=== PATIENT | female | born 1950 | race Caucasian/White ===

== ENCOUNTER 2024-09-27 12:10 | Inpatient (IN) | payer MEDICARE, OTHER ==
[~2024-09-27] VITALS: Ht 152.4 cm; Wt 36.3 kg
[2024-09-27] MEDS ORDERED: oxyCODONE IR immediate release 5 MG TABLET ONE (13:58)
[2024-09-27] MEDS: oxyCODONE IR immediate release 5 MG TABLET PO PRN (14:00)
[2024-09-27 14:25] LABS: CALCIUM, SERUM 9.7 mg/dL (8.5-10.1); CREATININE 0.9 mg/dL (0.6-1.3); POTASSIUM 3.5 mmol/L (3.5-5.1)
[2024-09-27 14:34] LABS: INR 1.03 (0.91-1.10); PARTIAL THROMBOPLASTIN TIME 29.6 SEC (24.3-34.3); PROTHROMBIN TIME 10.9 SECS (9.2-11.1)
[2024-09-27 14:55] LABS: BASOPHILS # (AUTO) 0.1 K/uL (0.0-0.2); BASOPHILS % (AUTO) 0.9 % (0.0-2.0); EOSINOPHILS # (AUTO) 0.1 K/uL (0.0-0.7); EOSINOPHILS % (AUTO) 0.7 % (0.0-6.0); HEMATOCRIT 40 % (33-45); HEMOGLOBIN 13.8 g/dL (11.5-14.8); LYMPHOCYTES % (AUTO) 11.9 % (20.0-44.0); MEAN CORPUSCULAR HEMOGLOBIN 33 PG (26.0-33.0); MEAN CORPUSCULAR HGB CONC 35 g/dl (31.0-36.0); MEAN CORPUSCULAR VOLUME 94 fL (82-100); MONOCYTES # (AUTO) 0.8 K/uL (0.1-1.30); MONOCYTES % (AUTO) 9.4 % (2.0-12.0); NEUTROPHILS # (AUTO) 6.7 K/uL (1.8-8.9); NEUTROPHILS % (AUTO) 77.1 % (43.0-81.0); PLATELET COUNT (AUTO) 254 K/uL (150-450); RED BLOOD CELL COUNT(AUTO) 4.25 MIL/uL (4.0-5.2); RED CELL DISTRIBUTION WIDTH 13.7 % (11.5-15.0); WHITE BLOOD COUNT (AUTO) 8.7 K/uL (4.3-11.0)
[2024-09-27] MEDS ORDERED: MORPHINE SULFATE INJ 4 MG/ML DISP.SYRIN ONE (15:35)
[2024-09-27] MEDS: MORPHINE SULFATE INJ 2 MG/ML DISP.SYRIN IV ONE (15:56)
[2024-09-27] MEDS ORDERED: FLUT1BLS6 IH (16:35)
[2024-09-27] MEDS ORDERED: AMLO5TAB4 PO (16:35)
[2024-09-27] MEDS ORDERED: SIME180C47 PO (16:35)
[2024-09-27] MEDS ORDERED: ALBU8.5H8 IH (16:35)
[2024-09-27] MEDS ORDERED: HYDR-4209 PO (16:35)
[2024-09-27] MEDS ORDERED: DIAZ5TAB4 PO (16:35)
[2024-09-27] MEDS ORDERED: SUMA100T PO (16:35)
[2024-09-27] MEDS ORDERED: CHOL200026 PO (16:35)
[2024-09-27] MEDS ORDERED: LOPE-195 PO (16:35)
[2024-09-27] MEDS ORDERED: PROC10TA13 PO (16:35)
[2024-09-27] MEDS ORDERED: ASPI-1169 PO (16:35)
[2024-09-27] MEDS ORDERED: PRED5TAB PO (16:35)
[2024-09-27] MEDS ORDERED: FENT1PAT10 TD (16:35)
[2024-09-27] MEDS ORDERED: LEVO50TA PO (16:35)
[2024-09-27] MEDS ORDERED: BISA5TAB10 PO (16:35)
[2024-09-27] MEDS ORDERED: DOCU100T2 PO (16:35)
[2024-09-27] MEDS ORDERED: ESOM40CA PO (16:35)
[2024-09-27] MEDS ORDERED: METO25TA6 PO (16:35)
[2024-09-27] MEDS ORDERED: RIBO100T6 PO (16:35)
[2024-09-27] MEDS ORDERED: ESTR-3 PO (16:35)
[2024-09-27] MEDS ORDERED: B-CO1TAB PO (16:35)
[2024-09-27] MEDS ORDERED: MAG HYDROX/AL HYDROX/SIMETH 30 ML UDC PO PRN (18:00)
[2024-09-27] MEDS ORDERED: ONDANSETRON HCL/PF 4 MG/2 ML VIAL IVP PRN (18:00)
[2024-09-27] MEDS ORDERED: BISACODYL (5 MG) 5 MG TABLET.DR PO PRN (18:00)
[2024-09-27] MEDS ORDERED: ZOLPIDEM TARTRATE 5 MG TABLET PO PRN (18:00)
[2024-09-27] MEDS ORDERED: LOPERAMIDE HCL (2 MG CAP) 2 MG CAPSULE PO PRN (18:00)
[2024-09-27] MEDS ORDERED: DIAZEPAM 5 MG TABLET PO PRN (18:00)
[2024-09-27] MEDS ORDERED: DOCUSATE SODIUM 100 MG CAPSULE PO PRN (18:30)
[2024-09-27] MEDS ORDERED: ALBUTEROL FS 2.5 MG/3 ML VIAL.NEB NEB PRN (18:30)
[2024-09-27] MEDS: FENTANYL PATCH (100 MCG/HR) 100 MCG/HR PATCH.TD72 TD SCH (19:48)
[2024-09-27] MEDS: ENOXAPARIN SODIUM 40 MG/0.4 ML DISP.SYRIN SQ SCH (19:49)
[2024-09-27 20:00] VITALS: BP_SYST 122; BP_SYST 160; BP_DIAS 62; BP_DIAS 65; TEMP 98.2; O2SAT 100
[2024-09-27] MEDS: IV D5/0.45 NACL 1,000 ML IV PRN (20:26)
[2024-09-28] VITALS: BP 122/65
[2024-09-28 07:13] LABS: BASOPHILS # (AUTO) 0.1 K/uL (0.0-0.2); BASOPHILS % (AUTO) 1.3 % (0.0-2.0); EOSINOPHILS # (AUTO) 0.5 K/uL (0.0-0.7); EOSINOPHILS % (AUTO) 7.6 % (0.0-6.0); HEMATOCRIT 37 % (33-45); HEMOGLOBIN 12.3 g/dL (11.5-14.8); LYMPHOCYTES # (AUTO) 1.2 K/uL (0.8-4.8); LYMPHOCYTES % (AUTO) 17.6 % (20.0-44.0); MEAN CORPUSCULAR HEMOGLOBIN 31 PG (26.0-33.0); MEAN CORPUSCULAR HGB CONC 34 g/dl (31.0-36.0); MEAN CORPUSCULAR VOLUME 93 fL (82-100); MONOCYTES # (AUTO) 0.8 K/uL (0.1-1.30); MONOCYTES % (AUTO) 11.6 % (2.0-12.0); NEUTROPHILS # (AUTO) 4.3 K/uL (1.8-8.9); NEUTROPHILS % (AUTO) 61.9 % (43.0-81.0); PLATELET COUNT (AUTO) 237 K/uL (150-450); RED BLOOD CELL COUNT(AUTO) 3.92 MIL/uL (4.0-5.2); RED CELL DISTRIBUTION WIDTH 13.6 % (11.5-15.0)
[2024-09-28 07:30] VITALS: BP 140/80; TEMP 98.2; O2SAT 100
[2024-09-28] MEDS: PANTOPRAZOLE 40 MG TABLET.DR PO SCH (07:38)
[2024-09-28 07:40] LABS: CREATININE 0.8 mg/dL (0.6-1.3); MAGNESIUM 1.8 mg/dL (1.8-2.4); PHOSPHORUS 3.6 mg/dL (2.5-4.9); POTASSIUM 3.6 mmol/L (3.5-5.1)
[2024-09-28 08:02] LABS: THYROID STIMULATING HORMONE 32.61 uIU/mL (0.358-3.74)
[2024-09-28] MEDS ORDERED: ANESTHESIA TRAY IN PYXIS 1 EA TRAY MC ONE ×2 (08:20→13:04)
[2024-09-28] MEDS ORDERED: BUPIVACAINE 0.5 % PF 150 MG/30 ML VIAL ONE (08:20)
[2024-09-28] MEDS: PROCHLORPERAZINE MALEATE 10 MG TABLET PO SCH (09:00)
[2024-09-28] MEDS: METOPROLOL TARTRATE 25 MG TABLET PO SCH (09:00)
[2024-09-28] MEDS ORDERED: [UNRECOGNIZED DRUG - OTHER] PO SCH (09:00)
[2024-09-28] MEDS: SIMETHICONE 80 MG TAB.CHEW PO SCH (09:00)
[2024-09-28] MEDS ORDERED: SUMATRIPTAN SUCCINATE 100 MG TABLET PO PRN (09:00)
[2024-09-28] MEDS: ASPIRIN 81 MG TAB.CHEW PO SCH (09:00)
[2024-09-28] MEDS ORDERED: PANTOPRAZOLE 40 MG TABLET.DR PO SCH (09:00)
[2024-09-28] MEDS: AMLODIPINE BESYLATE 5 MG TABLET PO SCH (09:00)
[2024-09-28] MEDS ORDERED: ROPIVACAINE HCL 0.5% 5 MG/ML 30ML VIAL ONE (09:01)
[2024-09-28] MEDS ORDERED: FENTANYL PF 100MCG/2ML AMPUL ONE (09:01)
[2024-09-28] MEDS ORDERED: TRANEXAMIC ACID 1,000 MG/10 ML VIAL ONE (09:02)
[2024-09-28] MEDS ORDERED: ROCURONIUM BROMIDE 50 MG/5 ML ONE (09:02)
[2024-09-28] MEDS ORDERED: MEPERIDINE HCL/PF 50 MG/ML DISP.SYRIN IV PRN (12:00)
[2024-09-28] MEDS ORDERED: MORPHINE SULFATE INJ 10 MG/ML DISP.SYRIN IV PRN (12:00)
[2024-09-28 14:56] LABS: HEMOGLOBIN 11.6 g/dL (11.5-14.8)
[2024-09-28 16:00] VITALS: BP 135/74; TEMP 98.2; O2SAT 99
[2024-09-28] MEDS: predniSONE 5 MG TABLET PO SCH (18:08)
[2024-09-28] MEDS: CHOLECALCIFEROL 1,000 UNIT TABLET (VIT D3) PO SCH (18:09)
[2024-09-28] MEDS: LEVOTHYROXINE SODIUM 50 MCG TABLET PO SCH (18:09)
[2024-09-28] MEDS: RIBOFLAVIN 400 MG PO SCH (18:10)
[2024-09-28] MEDS: Z GUARD REMEDY 4 OZ OINT TP PRN (18:12)
[2024-09-28] MEDS: Fluticasone/Umeclidin/Vilanter (Trelegy Ellipta 100-62.5 INH SCH (18:52)
[2024-09-28] MEDS: CONJUGATED ESTROGENS PO SCH (18:52)
[2024-09-28] MEDS: MEDROXYPROGESTERONE PO SCH (18:52)
[2024-09-28] MEDS: ANCEF 1 GM/50 ML D5W IV SCH (18:53)
[2024-09-28 20:58] VITALS: BP 108/61; TEMP 98.1; O2SAT 99
[2024-09-29 01:22] VITALS: BP 108/61; TEMP 98.1; O2SAT 100
[2024-09-29 08:03] LABS: BASOPHILS % (AUTO) 0.1 % (0.0-2.0); HEMATOCRIT 32 % (33-45); HEMOGLOBIN 10.9 g/dL (11.5-14.8); LYMPHOCYTES # (AUTO) 1.3 K/uL (0.8-4.8); LYMPHOCYTES % (AUTO) 11.3 % (20.0-44.0); MEAN CORPUSCULAR HEMOGLOBIN 32 PG (26.0-33.0); MEAN CORPUSCULAR HGB CONC 34 g/dl (31.0-36.0); MEAN CORPUSCULAR VOLUME 94 fL (82-100); MONOCYTES # (AUTO) 1.3 K/uL (0.1-1.30); MONOCYTES % (AUTO) 10.8 % (2.0-12.0); NEUTROPHILS # (AUTO) 9.2 K/uL (1.8-8.9); NEUTROPHILS % (AUTO) 77.8 % (43.0-81.0); PLATELET COUNT (AUTO) 240 K/uL (150-450); RED BLOOD CELL COUNT(AUTO) 3.47 MIL/uL (4.0-5.2); RED CELL DISTRIBUTION WIDTH 13.7 % (11.5-15.0); WHITE BLOOD COUNT (AUTO) 11.8 K/uL (4.3-11.0)
[2024-09-29 08:10] LABS: CALCIUM, SERUM 8.8 mg/dL (8.5-10.1); CREATININE 0.9 mg/dL (0.6-1.3); PHOSPHORUS 3.1 mg/dL (2.5-4.9); POTASSIUM 3.8 mmol/L (3.5-5.1)
[2024-09-29 08:51] VITALS: BP 144/65; TEMP 98.1; O2SAT 93
[2024-09-29] MEDS: HYDROCODONE/APAP 5/325MG TABLET PO PRN (10:27)
[2024-09-29] MEDS: THERAHONEY GEL 1.5 OZ TUBE TP SCH (12:50)
[2024-09-29] MEDS: ENOXAPARIN SODIUM 40 MG/0.4 ML DISP.SYRIN SQ SCH (13:56)
[2024-09-29 16:18] VITALS: BP 117/64; TEMP 97.7; O2SAT 100
[2024-09-29 20:00] VITALS: BP 111/56; TEMP 98.2; O2SAT 99
[2024-09-30 08:00] VITALS: BP 162/81; TEMP 97.9; O2SAT 98
[2024-09-30] MEDS: LEVOTHYROXINE SODIUM 50 MCG TABLET PO SCH (08:49)
[2024-09-30 10:47] LABS: BASOPHILS % (AUTO) 0.2 % (0.0-2.0); EOSINOPHILS # (AUTO) 0.2 K/uL (0.0-0.7); EOSINOPHILS % (AUTO) 2.1 % (0.0-6.0); HEMATOCRIT 31 % (33-45); HEMOGLOBIN 10.4 g/dL (11.5-14.8); LYMPHOCYTES # (AUTO) 0.9 K/uL (0.8-4.8); LYMPHOCYTES % (AUTO) 11.7 % (20.0-44.0); MEAN CORPUSCULAR HEMOGLOBIN 32 PG (26.0-33.0); MEAN CORPUSCULAR HGB CONC 34 g/dl (31.0-36.0); MEAN CORPUSCULAR VOLUME 94 fL (82-100); MONOCYTES # (AUTO) 0.8 K/uL (0.1-1.30); MONOCYTES % (AUTO) 10.1 % (2.0-12.0); NEUTROPHILS # (AUTO) 6.1 K/uL (1.8-8.9); NEUTROPHILS % (AUTO) 75.9 % (43.0-81.0); PLATELET COUNT (AUTO) 232 K/uL (150-450); RED BLOOD CELL COUNT(AUTO) 3.25 MIL/uL (4.0-5.2); RED CELL DISTRIBUTION WIDTH 13.5 % (11.5-15.0)
[2024-09-30 11:13] LABS: CALCIUM, SERUM 8.8 mg/dL (8.5-10.1); CREATININE 0.8 mg/dL (0.6-1.3); MAGNESIUM 1.6 mg/dL (1.8-2.4); PHOSPHORUS 1.5 mg/dL (2.5-4.9); POTASSIUM 3.1 mmol/L (3.5-5.1)
[2024-09-30] MEDS: MAGNESIUM OXIDE 400 MG TABLET PO ONE (13:05)
[2024-09-30] MEDS: POTASSIUM CHLORIDE 20 MEQ TAB.PRT.SR PO SCH (13:05)
[2024-09-30] MEDS: ACETAMINOPHEN 325 MG TABLET PO PRN (14:27)
[2024-09-30 16:00] VITALS: BP 125/48; TEMP 98.6; O2SAT 100
[2024-09-30] MEDS: K PHOS NEUTRAL 250 MG TABLET PO ONE (16:00)
[2024-09-30] MEDS: oxyCODONE/APAP (5/325 MG) 1 UDTAB TABLET PO PRN (16:56)
[2024-09-30 20:00] VITALS: BP 136/56; TEMP 98.2; O2SAT 100
[2024-10-01 07:44] LABS: CALCIUM, SERUM 9.3 mg/dL (8.5-10.1); CREATININE 0.6 mg/dL (0.6-1.3); MAGNESIUM 1.9 mg/dL (1.8-2.4); PHOSPHORUS 1.7 mg/dL (2.5-4.9); POTASSIUM 3.6 mmol/L (3.5-5.1)
[2024-10-01 08:00] VITALS: BP 167/79; TEMP 98.2; O2SAT 99
[2024-10-01 08:48] VITALS: BP 167/79
[2024-10-01] MEDS: MAGNESIUM HYDROXIDE 30 ML UDC PO PRN (12:55)
== END 2024-10-01 13:00 | DRG 521 ==
LOC: ER 12:18 → MED 18:00
PROVIDERS: ADMIT Student in an Organized Health Care Education/Training Program; ATTEND Nurse Practitioner Acute Care
PROC: 0SRS0J9 Replacement of Left Hip Joint, Femoral Surface with Synthetic Substitute, Cemented, Open Approach (ICD-10-PCS; principal; 2024-09-28 09:00)
PROC: 0KBP0ZZ Excision of Left Hip Muscle, Open Approach (ICD-10-PCS; 2024-09-30)
PROC: 0KBN0ZZ Excision of Right Hip Muscle, Open Approach (ICD-10-PCS; 2024-09-30)
DX: M80.052A Age-related osteoporosis with current pathological fracture, left femur, initial encounter for fracture (principal); E43 Unspecified severe protein-calorie malnutrition; L89.153 Pressure ulcer of sacral region, stage 3; E87.1 Hypo-osmolality and hyponatremia; R64 Cachexia; Z68.1 Body mass index [BMI] 19.9 or less, adult; G91.2 (Idiopathic) normal pressure hydrocephalus; W18.30XA Fall on same level, unspecified, initial encounter; M06.9 Rheumatoid arthritis, unspecified; E03.9 Hypothyroidism, unspecified; F17.210 Nicotine dependence, cigarettes, uncomplicated; D64.9 Anemia, unspecified; D72.829 Elevated white blood cell count, unspecified; I10 Essential (primary) hypertension; Z88.0 Allergy status to penicillin; Y93.9 Activity, unspecified; Y92.009 Unspecified place in unspecified non-institutional (private) residence as the place of occurrence of the external cause
CPT/HCPCS: 36415; 70450-TC; 71045-TC; 72125-TC; 72170-TC; 73502; 73552; 73700-TC; 80048-TC; 83735-TC; 84100-TC; 84439-TC; 84443-TC; 85025-TC; 85027-TC; 85730-TC; 86850-TC; 93307-TC; 97110-TC; 97116-TC; 97530-TC; A4223; G0378; J0330; J0690; J1650; J1885; J2270; J2405; J2704; J2795; J3010; J3490; J7030; J7040; J7060; J7512; Q0164

== ENCOUNTER 2024-10-20 06:29 | Inpatient (IN) | payer MEDICARE, OTHER ==
[~2024-10-20] VITALS: Ht 162.6 cm; Wt 42.2 kg
[~2024-10-20 06:29] MED LIST: ALBU8.5H8 IH; AMLO5TAB4 PO; ASPI-1169 PO; B-CO1TAB PO; BISA5TAB10 PO; CHOL200026 PO; DIAZ5TAB4 PO; DOCU100T2 PO; ESOM40CA PO; ESTR-3 PO; FENT1PAT10 TD; FLUT1BLS6 IH; HYDR-4209 PO; LEVO50TA PO; LOPE-195 PO; METO25TA6 PO; PRED5TAB PO; PROC10TA13 PO; RIBO100T6 PO; SIME180C47 PO; SUMA100T PO
[2024-10-20] MEDS ORDERED: ONDANSETRON HCL/PF 4 MG/2 ML VIAL ONE (06:57)
[2024-10-20] MEDS: MORPHINE SULFATE INJ 2 MG/ML DISP.SYRIN IV ONE (06:57)
[2024-10-20] MEDS ORDERED: MORPHINE SULFATE INJ 2 MG/ML DISP.SYRIN ONE (06:57)
[2024-10-20] MEDS: ONDANSETRON HCL/PF 4 MG/2 ML VIAL IVP ONE (06:58)
[2024-10-20 07:13] LABS: BASOPHILS % (AUTO) 0.5 % (0.0-2.0); EOSINOPHILS # (AUTO) 0.1 K/uL (0.0-0.7); EOSINOPHILS % (AUTO) 1.3 % (0.0-6.0); HEMATOCRIT 31 % (33-45); HEMOGLOBIN 10.3 g/dL (11.5-14.8); LYMPHOCYTES # (AUTO) 1.9 K/uL (0.8-4.8); LYMPHOCYTES % (AUTO) 18.9 % (20.0-44.0); MEAN CORPUSCULAR HEMOGLOBIN 32 PG (26.0-33.0); MEAN CORPUSCULAR HGB CONC 33 g/dl (31.0-36.0); MEAN CORPUSCULAR VOLUME 95 fL (82-100); MONOCYTES # (AUTO) 0.7 K/uL (0.1-1.30); MONOCYTES % (AUTO) 7.3 % (2.0-12.0); NEUTROPHILS # (AUTO) 7.3 K/uL (1.8-8.9); PLATELET COUNT (AUTO) 415 K/uL (150-450); RED BLOOD CELL COUNT(AUTO) 3.26 MIL/uL (4.0-5.2); RED CELL DISTRIBUTION WIDTH 14.2 % (11.5-15.0); WHITE BLOOD COUNT (AUTO) 10.1 K/uL (4.3-11.0)
[2024-10-20 07:19] LABS: CALCIUM, SERUM 9.2 mg/dL (8.5-10.1); CREATININE 0.9 mg/dL (0.6-1.3); POTASSIUM 3.6 mmol/L (3.5-5.1)
[2024-10-20 07:27] LABS: INR 1.01 (0.91-1.10); PARTIAL THROMBOPLASTIN TIME 23.7 SEC (24.3-34.3); PROTHROMBIN TIME 10.7 SECS (9.2-11.1)
[2024-10-20] MEDS ORDERED: DIAZEPAM 5 MG TABLET PO PRN (08:00)
[2024-10-20] MEDS ORDERED: SUMATRIPTAN SUCCINATE 100 MG TABLET PO PRN (08:00)
[2024-10-20] MEDS ORDERED: Z GUARD REMEDY 4 OZ OINT TP PRN (08:00)
[2024-10-20] MEDS ORDERED: MAGNESIUM HYDROXIDE 30 ML UDC PO PRN (08:00)
[2024-10-20] MEDS ORDERED: LOPERAMIDE HCL (2 MG CAP) 2 MG CAPSULE PO PRN (08:00)
[2024-10-20] MEDS ORDERED: BISACODYL (5 MG) 5 MG TABLET.DR PO PRN (08:00)
[2024-10-20] MEDS ORDERED: ACETAMINOPHEN 325 MG TABLET PO PRN (08:00)
[2024-10-20] MEDS ORDERED: ONDANSETRON HCL/PF 4 MG/2 ML VIAL IVP PRN (08:00)
[2024-10-20] MEDS ORDERED: MAG HYDROX/AL HYDROX/SIMETH 30 ML UDC PO PRN (08:00)
[2024-10-20] MEDS ORDERED: ONDA4TAB11 PO (08:15)
[2024-10-20] MEDS ORDERED: GABA-532 PO (08:15)
[2024-10-20] MEDS ORDERED: TRAM50TA2 PO (08:15)
[2024-10-20] MEDS: AMLODIPINE BESYLATE 5 MG TABLET PO SCH (09:00)
[2024-10-20 10:30] VITALS: BP 157/71; TEMP 98.1; O2SAT 97
[2024-10-20] MEDS ORDERED: DOCUSATE SODIUM 100 MG CAPSULE PO PRN (11:00)
[2024-10-20] MEDS: METOPROLOL TARTRATE 25 MG TABLET PO SCH (11:37)
[2024-10-20] MEDS: LEVOTHYROXINE SODIUM 50 MCG TABLET PO SCH (11:37)
[2024-10-20] MEDS: predniSONE 5 MG TABLET PO SCH (11:37)
[2024-10-20] MEDS: PROCHLORPERAZINE MALEATE 10 MG TABLET PO SCH (13:18)
[2024-10-20] MEDS ORDERED: ALBUTEROL FS 2.5 MG/3 ML VIAL.NEB IH PRN (13:30)
[2024-10-20] MEDS: MORPHINE SULFATE INJ 2 MG/ML DISP.SYRIN IV PRN (14:23)
[2024-10-20] MEDS: IV NS 0.9% 1,000 ML IV PRN (15:44)
[2024-10-20 16:00] VITALS: BP 151/73; TEMP 99.3; O2SAT 97
[2024-10-20 16:03] VITALS: BP 151/73; TEMP 99.3; O2SAT 97
[2024-10-20 20:00] VITALS: BP 148/76; TEMP 98.2; O2SAT 99
[2024-10-21 07:30] VITALS: BP 160/81; TEMP 98.2; O2SAT 99
[2024-10-21 07:54] VITALS: BP 160/81; TEMP 98.2; O2SAT 99
[2024-10-21] MEDS: THERAHONEY GEL 1.5 OZ TUBE TP SCH (10:08)
[2024-10-21 10:19] LABS: BASOPHILS % (AUTO) 0.4 % (0.0-2.0); EOSINOPHILS # (AUTO) 0.1 K/uL (0.0-0.7); EOSINOPHILS % (AUTO) 0.5 % (0.0-6.0); HEMATOCRIT 32 % (33-45); HEMOGLOBIN 10.5 g/dL (11.5-14.8); LYMPHOCYTES # (AUTO) 0.8 K/uL (0.8-4.8); LYMPHOCYTES % (AUTO) 8.8 % (20.0-44.0); MEAN CORPUSCULAR HEMOGLOBIN 32 PG (26.0-33.0); MEAN CORPUSCULAR HGB CONC 33 g/dl (31.0-36.0); MEAN CORPUSCULAR VOLUME 96 fL (82-100); MONOCYTES # (AUTO) 0.6 K/uL (0.1-1.30); MONOCYTES % (AUTO) 6.8 % (2.0-12.0); NEUTROPHILS # (AUTO) 7.9 K/uL (1.8-8.9); NEUTROPHILS % (AUTO) 83.5 % (43.0-81.0); PLATELET COUNT (AUTO) 305 K/uL (150-450); RED BLOOD CELL COUNT(AUTO) 3.31 MIL/uL (4.0-5.2); RED CELL DISTRIBUTION WIDTH 14.2 % (11.5-15.0); WHITE BLOOD COUNT (AUTO) 9.5 K/uL (4.3-11.0)
[2024-10-21 10:26] LABS: CALCIUM, SERUM 8.5 mg/dL (8.5-10.1); CREATININE 0.6 mg/dL (0.6-1.3); MAGNESIUM 1.6 mg/dL (1.8-2.4); PHOSPHORUS 2.5 mg/dL (2.5-4.9); POTASSIUM 3.2 mmol/L (3.5-5.1)
[2024-10-21] MEDS ORDERED: BUPIVACAINE 0.5 % PF 150 MG/30 ML VIAL ONE (10:56)
[2024-10-21] MEDS ORDERED: BUPIVACAINE 0.25% 75 MG/30 ML VIAL ONE (10:56)
[2024-10-21] MEDS ORDERED: POLYMYXIN B SULFATE 0 UNITS ONE (10:56)
[2024-10-21] MEDS ORDERED: FENTANYL PF 100MCG/2ML AMPUL ONE ×2 (10:59)
[2024-10-21] MEDS ORDERED: ROPIVACAINE HCL 0.5% 5 MG/ML 30ML VIAL ONE (10:59)
[2024-10-21] MEDS ORDERED: TRANEXAMIC ACID 1,000 MG/10 ML VIAL ONE (11:00)
[2024-10-21] MEDS ORDERED: ROCURONIUM BROMIDE 50 MG/5 ML ONE (11:00)
[2024-10-21] MEDS ORDERED: SEVOFLURANE 250 ML BOTTLE IH ONE (12:33)
[2024-10-21] MEDS ORDERED: FENTANYL PF 100MCG/2ML AMPUL IV PRN (13:00)
[2024-10-21] MEDS ORDERED: MEPERIDINE HCL/PF 50 MG/ML DISP.SYRIN IV PRN (13:00)
[2024-10-21] MEDS ORDERED: ONDANSETRON HCL/PF 4 MG/2 ML VIAL IVP PRN (13:00)
[2024-10-21 15:15] VITALS: BP 134/73; TEMP 97.7; O2SAT 94
[2024-10-21 16:00] VITALS: BP 134/67; TEMP 97.5; O2SAT 100
[2024-10-21] MEDS: TRELEGY INH SCH (17:12)
[2024-10-21 18:35] VITALS: O2SAT 98
[2024-10-21] MEDS: CEFAZOLIN 2 GM in IV D5W 100 ML IV SCH (20:15)
[2024-10-21 20:31] VITALS: BP 109/59; TEMP 97.5; O2SAT 92
[2024-10-22] MEDS: TRAMADOL HCL 50 MG TABLET PO PRN (00:17)
[2024-10-22 07:30] VITALS: BP 134/81; TEMP 98.2; O2SAT 91
[2024-10-22 07:59] LABS: CALCIUM, SERUM 8.3 mg/dL (8.5-10.1); CREATININE 0.7 mg/dL (0.6-1.3); POTASSIUM 3.6 mmol/L (3.5-5.1)
[2024-10-22] MEDS ORDERED: ENOXAPARIN SODIUM 40 MG/0.4 ML DISP.SYRIN SQ SCH (08:00)
[2024-10-22 08:04] LABS: ALBUMIN 1.9 g/dL (3.4-5.0); BILIRUBIN,TOTAL 0.2 mg/dL (0.2-1.0); MAGNESIUM 1.7 mg/dL (1.8-2.4); PHOSPHORUS 2.6 mg/dL (2.5-4.9); TOTAL PROTEIN, SERUM 5.2 g/dL (6.4-8.2)
[2024-10-22 08:27] LABS: BASOPHILS % (AUTO) 0.1 % (0.0-2.0); EOSINOPHILS % (AUTO) 0.1 % (0.0-6.0); LYMPHOCYTES # (AUTO) 0.8 K/uL (0.8-4.8); LYMPHOCYTES % (AUTO) 8.8 % (20.0-44.0); MEAN CORPUSCULAR HEMOGLOBIN 33 PG (26.0-33.0); MEAN CORPUSCULAR HGB CONC 34 g/dl (31.0-36.0); MEAN CORPUSCULAR VOLUME 96 fL (82-100); MONOCYTES # (AUTO) 0.8 K/uL (0.1-1.30); MONOCYTES % (AUTO) 8.8 % (2.0-12.0); NEUTROPHILS # (AUTO) 7.6 K/uL (1.8-8.9); NEUTROPHILS % (AUTO) 82.2 % (43.0-81.0); PLATELET COUNT (AUTO) 236 K/uL (150-450); RED BLOOD CELL COUNT(AUTO) 2.42 MIL/uL (4.0-5.2); RED CELL DISTRIBUTION WIDTH 14.3 % (11.5-15.0); WHITE BLOOD COUNT (AUTO) 9.2 K/uL (4.3-11.0)
[2024-10-22 08:29] LABS: HEMATOCRIT 24 % (33-45)
[2024-10-22] MEDS: GABAPENTIN 100 MG CAPSULE PO SCH (08:56)
[2024-10-22] MEDS: ENOXAPARIN SODIUM 40 MG/0.4 ML DISP.SYRIN SQ SCH (08:58)
[2024-10-22] MEDS: MAGNESIUM OXIDE 400 MG TABLET PO ONE (10:59)
[2024-10-22 16:00] VITALS: BP 119/58; TEMP 98.1; O2SAT 98
[2024-10-22 20:00] VITALS: BP 134/62; TEMP 97.7; O2SAT 98
[2024-10-22 20:02] VITALS: BP 134/62; TEMP 97.7; O2SAT 98
[2024-10-23 06:32] LABS: BASOPHILS % (AUTO) 0.2 % (0.0-2.0); EOSINOPHILS # (AUTO) 0.2 K/uL (0.0-0.7); EOSINOPHILS % (AUTO) 2.1 % (0.0-6.0); HEMATOCRIT 23 % (33-45); HEMOGLOBIN 7.8 g/dL (11.5-14.8); LYMPHOCYTES # (AUTO) 0.9 K/uL (0.8-4.8); MEAN CORPUSCULAR HEMOGLOBIN 32 PG (26.0-33.0); MEAN CORPUSCULAR HGB CONC 34 g/dl (31.0-36.0); MEAN CORPUSCULAR VOLUME 95 fL (82-100); MONOCYTES # (AUTO) 0.7 K/uL (0.1-1.30); MONOCYTES % (AUTO) 9.1 % (2.0-12.0); NEUTROPHILS % (AUTO) 76.6 % (43.0-81.0); PLATELET COUNT (AUTO) 226 K/uL (150-450); RED BLOOD CELL COUNT(AUTO) 2.44 MIL/uL (4.0-5.2); RED CELL DISTRIBUTION WIDTH 14.4 % (11.5-15.0); WHITE BLOOD COUNT (AUTO) 7.9 K/uL (4.3-11.0)
[2024-10-23 06:33] LABS: CALCIUM, SERUM 8.2 mg/dL (8.5-10.1); CARBON DIOXIDE 26 mmol/L (21-32); CHLORIDE 107 mmol/L (98-107); CREATININE 0.6 mg/dL (0.6-1.3); GLUCOSE 91 mg/dL (74-106); POTASSIUM 3.2 mmol/L (3.5-5.1); SODIUM SERUM 136 mmol/L (136-145); UREA NITROGEN, BLOOD 16 mg/dL (7-18)
[2024-10-23 07:30] VITALS: BP 157/80; TEMP 98.1; O2SAT 97
[2024-10-23] MEDS ORDERED: ENOX40DI SQ (08:51)
[2024-10-23] MEDS: MAGNESIUM HYDROXIDE 30 ML UDC PO PRN (09:02)
[2024-10-23] MEDS: POTASSIUM CHLORIDE 20 MEQ TAB.PRT.SR PO SCH (10:03)
[2024-10-23 15:59] VITALS: BP 135/68; TEMP 97.5; O2SAT 98
[2024-10-23] MEDS ORDERED: DOCUSATE SODIUM 250 MG CAPSULE PO SCH (22:00)
== END 2024-10-23 16:34 | DRG 521 ==
LOC: ER 06:31 → MED 10:03
PROVIDERS: ADMIT Internal Medicine; ATTEND Internal Medicine
PROC: 0SRR0J9 Replacement of Right Hip Joint, Femoral Surface with Synthetic Substitute, Cemented, Open Approach (ICD-10-PCS; principal; 2024-10-21 10:00)
DX: M80.051A Age-related osteoporosis with current pathological fracture, right femur, initial encounter for fracture (principal); E43 Unspecified severe protein-calorie malnutrition; G91.2 (Idiopathic) normal pressure hydrocephalus; Z68.1 Body mass index [BMI] 19.9 or less, adult; W01.0XXA Fall on same level from slipping, tripping and stumbling without subsequent striking against object, initial encounter; M06.9 Rheumatoid arthritis, unspecified; E03.9 Hypothyroidism, unspecified; L89.612 Pressure ulcer of right heel, stage 2; L89.622 Pressure ulcer of left heel, stage 2; G43.909 Migraine, unspecified, not intractable, without status migrainosus; I10 Essential (primary) hypertension; G89.4 Chronic pain syndrome; Z79.82 Long term (current) use of aspirin; Z79.01 Long term (current) use of anticoagulants; Z96.642 Presence of left artificial hip joint; Z88.0 Allergy status to penicillin; Z87.891 Personal history of nicotine dependence; Z79.891 Long term (current) use of opiate analgesic; R29.6 Repeated falls; L89.159 Pressure ulcer of sacral region, unspecified stage; S41.111A Laceration without foreign body of right upper arm, initial encounter; X58.XXXA Exposure to other specified factors, initial encounter; Y93.9 Activity, unspecified; Y92.009 Unspecified place in unspecified non-institutional (private) residence as the place of occurrence of the external cause; R53.1 Weakness; Z79.52 Long term (current) use of systemic steroids
CPT/HCPCS: 36415; 71045-TC; 72141-TC; 72170-TC; 73502; 73552; 73700-TC; 80048-TC; 80053-TC; 82607-TC; 83735-TC; 83921; 84100-TC; 85025-TC; 85027-TC; 85730-TC; 86850-TC; 87081-TC; 97110-TC; 97116-TC; 97530-TC; A4217; A4223; A6209; C1713; C1776; G0378; J0330; J0690; J1100; J1650; J1885; J2270; J2405; J2704; J2795; J3010; J3490; J7030; J7050; J7060; J7512; Q0164

== ENCOUNTER 2024-12-08 22:10 | Inpatient (IN) | payer MEDICARE, OTHER ==
[~2024-12-08] VITALS: Ht 147.3 cm; Wt 38.1 kg
[~2024-12-08 22:10] MED LIST changes: +ENOX40DI SQ; +GABA-532 PO; +ONDA4TAB11 PO; +TRAM50TA2 PO
[2024-12-08 23:35] LABS: BASOPHILS # (AUTO) 0.1 K/uL (0.0-0.2); BASOPHILS % (AUTO) 0.7 % (0.0-2.0); EOSINOPHILS # (AUTO) 0.1 K/uL (0.0-0.7); EOSINOPHILS % (AUTO) 0.8 % (0.0-6.0); HEMATOCRIT 37 % (33-45); HEMOGLOBIN 11.9 g/dL (11.5-14.8); LYMPHOCYTES # (AUTO) 2.3 K/uL (0.8-4.8); LYMPHOCYTES % (AUTO) 21.2 % (20.0-44.0); MEAN CORPUSCULAR HEMOGLOBIN 31 PG (26.0-33.0); MEAN CORPUSCULAR HGB CONC 32 g/dl (31.0-36.0); MEAN CORPUSCULAR VOLUME 96 fL (82-100); MONOCYTES # (AUTO) 0.7 K/uL (0.1-1.30); MONOCYTES % (AUTO) 6.4 % (2.0-12.0); NEUTROPHILS # (AUTO) 7.6 K/uL (1.8-8.9); NEUTROPHILS % (AUTO) 70.9 % (43.0-81.0); PLATELET COUNT (AUTO) 324 K/uL (150-450); RED BLOOD CELL COUNT(AUTO) 3.89 MIL/uL (4.0-5.2); RED CELL DISTRIBUTION WIDTH 13.3 % (11.5-15.0); WHITE BLOOD COUNT (AUTO) 10.8 K/uL (4.3-11.0)
[2024-12-08 23:42] LABS: CALCIUM, SERUM 9.2 mg/dL (8.5-10.1); CREATININE 0.9 mg/dL (0.6-1.3)
[2024-12-09] MEDS ORDERED: Z GUARD REMEDY 4 OZ OINT TP PRN (00:30)
[2024-12-09] MEDS ORDERED: MAGNESIUM HYDROXIDE 30 ML UDC PO PRN (00:30)
[2024-12-09] MEDS ORDERED: ACETAMINOPHEN 325 MG TABLET PO PRN (00:30)
[2024-12-09] MEDS ORDERED: ONDANSETRON HCL/PF 4 MG/2 ML VIAL IVP PRN (00:30)
[2024-12-09] MEDS ORDERED: MAG HYDROX/AL HYDROX/SIMETH 30 ML UDC PO PRN (00:30)
[2024-12-09 01:35] VITALS: BP 141/88; TEMP 97.7; O2SAT 100
[2024-12-09] MEDS: IV NS 0.9% 1,000 ML IV ONE (02:32)
[2024-12-09 07:15] LABS: BASOPHILS # (AUTO) 0.1 K/uL (0.0-0.2); BASOPHILS % (AUTO) 0.6 % (0.0-2.0); EOSINOPHILS # (AUTO) 0.2 K/uL (0.0-0.7); EOSINOPHILS % (AUTO) 1.6 % (0.0-6.0); HEMATOCRIT 35 % (33-45); HEMOGLOBIN 11.6 g/dL (11.5-14.8); LYMPHOCYTES # (AUTO) 2.5 K/uL (0.8-4.8); LYMPHOCYTES % (AUTO) 25.5 % (20.0-44.0); MEAN CORPUSCULAR HEMOGLOBIN 31 PG (26.0-33.0); MEAN CORPUSCULAR HGB CONC 33 g/dl (31.0-36.0); MEAN CORPUSCULAR VOLUME 94 fL (82-100); MONOCYTES # (AUTO) 0.7 K/uL (0.1-1.30); MONOCYTES % (AUTO) 7.5 % (2.0-12.0); NEUTROPHILS # (AUTO) 6.4 K/uL (1.8-8.9); NEUTROPHILS % (AUTO) 64.8 % (43.0-81.0); PLATELET COUNT (AUTO) 322 K/uL (150-450); RED BLOOD CELL COUNT(AUTO) 3.78 MIL/uL (4.0-5.2); RED CELL DISTRIBUTION WIDTH 12.8 % (11.5-15.0); WHITE BLOOD COUNT (AUTO) 9.8 K/uL (4.3-11.0)
[2024-12-09 07:29] LABS: ALBUMIN 2.8 g/dL (3.4-5.0); BILIRUBIN,TOTAL 0.3 mg/dL (0.2-1.0); CALCIUM, SERUM 8.8 mg/dL (8.5-10.1); CREATININE 0.8 mg/dL (0.6-1.3); MAGNESIUM 1.9 mg/dL (1.8-2.4); PHOSPHORUS 2.3 mg/dL (2.5-4.9); POTASSIUM 3.6 mmol/L (3.5-5.1); TOTAL PROTEIN, SERUM 6.7 g/dL (6.4-8.2)
[2024-12-09 08:00] VITALS: BP 141/70; TEMP 97.5; O2SAT 97
[2024-12-09] MEDS: PANTOPRAZOLE 40 MG TABLET.DR PO SCH (08:17)
[2024-12-09] MEDS: THERAHONEY GEL 1.5 OZ TUBE TP SCH (10:57)
[2024-12-09 12:15] LABS: THYROID STIMULATING HORMONE 1.63 uIU/mL (0.358-3.74)
[2024-12-09] MEDS ORDERED: SUMATRIPTAN SUCCINATE 100 MG TABLET PO PRN (13:00)
[2024-12-09] MEDS ORDERED: ONDANSETRON 4 MG TAB.RAPDIS PO PRN (13:00)
[2024-12-09] MEDS ORDERED: BISACODYL (5 MG) 5 MG TABLET.DR PO PRN (13:00)
[2024-12-09] MEDS ORDERED: DIAZEPAM 5 MG TABLET PO PRN (13:00)
[2024-12-09] MEDS ORDERED: LOPERAMIDE HCL (2 MG CAP) 2 MG CAPSULE PO PRN (13:00)
[2024-12-09] MEDS ORDERED: TRAMADOL HCL 50 MG TABLET PO PRN (13:00)
[2024-12-09] MEDS ORDERED: NALOXONE HCL 0.4 MG/ML AMPUL IV PRN (13:00)
[2024-12-09] MEDS ORDERED: DOCUSATE SODIUM 100 MG CAPSULE PO PRN (13:30)
[2024-12-09] MEDS: PROCHLORPERAZINE MALEATE 10 MG TABLET PO SCH (13:40)
[2024-12-09] MEDS: GABAPENTIN 100 MG CAPSULE PO SCH (13:40)
[2024-12-09] MEDS: ENSURE ENLIVE CHOC 237 ML CAN PO SCH (14:30)
[2024-12-09] MEDS ORDERED: ALBUTEROL FS 2.5 MG/3 ML VIAL.NEB NEB PRN (15:30)
[2024-12-09] MEDS: HYDROCODONE/APAP 5/325MG TABLET PO PRN (15:40)
[2024-12-09] MEDS: K PHOS NEUTRAL 250 MG TABLET PO ONE (15:40)
[2024-12-09] MEDS: FENTANYL PATCH (100 MCG/HR) 100 MCG/HR PATCH.TD72 TD SCH (15:43)
[2024-12-09 16:00] VITALS: BP 121/69; TEMP 97.5; O2SAT 98
[2024-12-09] MEDS: AMLODIPINE BESYLATE 5 MG TABLET PO SCH (17:41)
[2024-12-09 20:00] VITALS: BP 132/66; TEMP 97.5; O2SAT 96
[2024-12-10 08:00] VITALS: BP 160/89; TEMP 97.5; O2SAT 97
[2024-12-10] MEDS ORDERED: Medication Not On Formulary EA (Fluticasone/Umeclidin/Vilanter (Trelegy Ellipta 100-62.5 IH SCH (09:00)
[2024-12-10] MEDS ORDERED: Medication Not On Formulary EA (Esomeprazole Mag Trihydrate (Nexium) 40 MG) PO SCH (09:00)
[2024-12-10] MEDS: SIMETHICONE 80 MG TAB.CHEW PO SCH (09:23)
[2024-12-10] MEDS: predniSONE 5 MG TABLET PO SCH (09:23)
[2024-12-10] MEDS: METOPROLOL TARTRATE 25 MG TABLET PO SCH (09:24)
[2024-12-10] MEDS: VITAMIN B COMP W-C 1 TAB TABLET PO SCH (09:24)
[2024-12-10] MEDS: ASPIRIN 81 MG TAB.CHEW PO SCH (09:25)
[2024-12-10] MEDS: LEVOTHYROXINE SODIUM 50 MCG TABLET PO SCH (09:30)
[2024-12-10 10:09] LABS: FOLIC ACID 13.6 ng/mL (>3.0)
[2024-12-10 16:00] VITALS: BP 118/74; TEMP 97.5; O2SAT 96
[2024-12-10 20:00] VITALS: BP 133/69; TEMP 98.1; O2SAT 94
[2024-12-11 06:53] LABS: BASOPHILS # (AUTO) 0.1 K/uL (0.0-0.2); BASOPHILS % (AUTO) 0.8 % (0.0-2.0); EOSINOPHILS # (AUTO) 0.2 K/uL (0.0-0.7); EOSINOPHILS % (AUTO) 2.5 % (0.0-6.0); HEMATOCRIT 28 % (33-45); HEMOGLOBIN 9.3 g/dL (11.5-14.8); LYMPHOCYTES # (AUTO) 2.3 K/uL (0.8-4.8); LYMPHOCYTES % (AUTO) 32.6 % (20.0-44.0); MEAN CORPUSCULAR HEMOGLOBIN 31 PG (26.0-33.0); MEAN CORPUSCULAR HGB CONC 34 g/dl (31.0-36.0); MEAN CORPUSCULAR VOLUME 93 fL (82-100); MONOCYTES # (AUTO) 0.7 K/uL (0.1-1.30); MONOCYTES % (AUTO) 9.4 % (2.0-12.0); NEUTROPHILS # (AUTO) 3.9 K/uL (1.8-8.9); NEUTROPHILS % (AUTO) 54.7 % (43.0-81.0); PLATELET COUNT (AUTO) 264 K/uL (150-450); RED CELL DISTRIBUTION WIDTH 12.7 % (11.5-15.0); WHITE BLOOD COUNT (AUTO) 7.1 K/uL (4.3-11.0)
[2024-12-11 07:00] VITALS: BP 121/70; TEMP 97.9; O2SAT 94
[2024-12-11 07:41] LABS: CALCIUM, SERUM 8.7 mg/dL (8.5-10.1); CREATININE 0.8 mg/dL (0.6-1.3); POTASSIUM 3.9 mmol/L (3.5-5.1)
[2024-12-11 16:00] VITALS: BP 120/62; TEMP 97.9; O2SAT 94
[2024-12-11 20:00] VITALS: BP 117/68; TEMP 98.1; O2SAT 95
[2024-12-12 08:00] VITALS: BP 140/74; TEMP 98.1; O2SAT 96
[2024-12-12 10:06] VITALS: BP 110/56
[2024-12-13 02:12] LABS: VITAMIN B1 THIAMINE,WB 110.5 nmol/L (66.5-200.0)
== END 2024-12-12 15:56 | DRG 622 ==
LOC: ER 22:11 → MED 12-09 01:05
PROVIDERS: ADMIT Internal Medicine; ATTEND Internal Medicine
PROC: 0KBP0ZZ Excision of Left Hip Muscle, Open Approach (ICD-10-PCS; principal; 2024-12-11)
PROC: 0KBN0ZZ Excision of Right Hip Muscle, Open Approach (ICD-10-PCS; 2024-12-11)
DX: E86.0 Dehydration (principal); L89.154 Pressure ulcer of sacral region, stage 4; E44.0 Moderate protein-calorie malnutrition; R64 Cachexia; Z68.1 Body mass index [BMI] 19.9 or less, adult; G91.2 (Idiopathic) normal pressure hydrocephalus; R62.7 Adult failure to thrive; I10 Essential (primary) hypertension; M06.9 Rheumatoid arthritis, unspecified; Z79.899 Other long term (current) drug therapy; Z79.82 Long term (current) use of aspirin; G89.29 Other chronic pain; E03.9 Hypothyroidism, unspecified; G43.909 Migraine, unspecified, not intractable, without status migrainosus; E88.09 Other disorders of plasma-protein metabolism, not elsewhere classified; J44.9 Chronic obstructive pulmonary disease, unspecified; R29.6 Repeated falls; Z88.0 Allergy status to penicillin; Z96.643 Presence of artificial hip joint, bilateral; R53.1 Weakness; Z71.6 Tobacco abuse counseling; F19.11 Other psychoactive substance abuse, in remission; S81.811A Laceration without foreign body, right lower leg, initial encounter; W19.XXXA Unspecified fall, initial encounter; Y93.9 Activity, unspecified; Y92.009 Unspecified place in unspecified non-institutional (private) residence as the place of occurrence of the external cause; S80.12XA Contusion of left lower leg, initial encounter; F17.210 Nicotine dependence, cigarettes, uncomplicated
CPT/HCPCS: 36415; 70450-TC; 71045-TC; 72125-TC; 73030-TC; 73590-TC; 80048-TC; 80053-TC; 82607-TC; 83735-TC; 83921; 84100-TC; 84425; 84443-TC; 85025-TC; 87081-TC; 97110-TC; 97116-TC; 97530-TC; 97535-TC; A4223; G0378; J7030; J7512; Q0164

== ENCOUNTER 2025-05-05 23:52 | Emergency (ER) | payer MEDICARE, OTHER ==
[~2025-05-05] VITALS: Ht 152.4 cm; Wt 40.8 kg
[~2025-05-05 23:52] MED LIST changes: -ENOX40DI SQ
[2025-05-06 00:14] VITALS: BP 144/86; TEMP 98.2; O2SAT 96
[2025-05-06 00:38] LABS: PLATELET COUNT (AUTO) 364 K/uL (150-450); RED BLOOD CELL COUNT(AUTO) 4.44 MIL/uL (4.0-5.2); RED CELL DISTRIBUTION WIDTH 15.8 % (11.5-15.0); WHITE BLOOD COUNT (AUTO) 12.2 K/uL (4.3-11.0)
[2025-05-06 00:44] LABS: CALCIUM, SERUM 9.2 mg/dL (8.5-10.1); CREATININE 1.2 mg/dL (0.6-1.3); SODIUM SERUM 134.0 mmol/L (136-145); UREA NITROGEN, BLOOD 25.0 mg/dL (7-18)
[2025-05-06 00:52] LABS: ASPARTATE AMINOTRANSFERASE 27.0 U/L (15-37); TOTAL PROTEIN, SERUM 7.5 g/dL (6.4-8.2)
[2025-05-06] MEDS: IV NS 0.9% 1,000 ML BAG IV ONE (00:55)
[2025-05-06 01:59] LABS: APPEARANCE,URINE CLEAR (CLEAR); BLOOD, URINE TRACE-INTA Ery/uL (NEGATIVE); LEUKOCYTE ESTERASE ,URINE 3+ (NEGATIVE); NITRITE, URINE POSITIVE (NEGATIVE); UGLUCOSE NEGATIVE (NEGATIVE)
[2025-05-06 02:11] LABS: ADD URINE CULTURE YES
[2025-05-06] MEDS ORDERED: CEPH-570 PO (02:15)
[2025-05-06] MEDS ORDERED: CEFTRIAXONE 1GM BAG (ER ONLY) 50 ML IV ONE (02:36)
[2025-05-06] MEDS: CEFTRIAXONE 1 G in IV D5W 50 ML IV ONE (02:36)
== END 2025-05-06 03:07 ==
LOC: ER 23:56
DX: N39.0 Urinary tract infection, site not specified (principal); R53.1 Weakness; I11.9 Hypertensive heart disease without heart failure; G89.29 Other chronic pain; E03.9 Hypothyroidism, unspecified; J44.9 Chronic obstructive pulmonary disease, unspecified; M06.9 Rheumatoid arthritis, unspecified; Z79.52 Long term (current) use of systemic steroids; Z79.82 Long term (current) use of aspirin; Z79.890 Hormone replacement therapy; Z79.899 Other long term (current) drug therapy; Z88.0 Allergy status to penicillin; Z96.642 Presence of left artificial hip joint
CPT/HCPCS: 99285; 96365; 71045; 96361; 93005; 85025; 87077; 87086; 83735; 87186 ×2; 81001; 36415; 80053; J7030; J0696